=== PATIENT | female | born 1950 | race Caucasian/White ===

== ENCOUNTER 2018-04-22 08:42 | Outpatient (REF) | payer MEDICARE, BC, SELFPAY ==
[2018-04-22 19:29] LABS: Cholesterol 206 mg/dL (50-200); Glucose 92 mg/dL (70-100); HDL Cholesterol 55 mg/dL (40-60); LDL CHOLESTEROL 105 mg/dL (<100); Triglyceride 285 mg/dL (30-150)
== END 2018-04-22 09:02 ==
LOC: NCHCN 08:42
PROVIDERS: PCP Family Medicine; Visit Provider Nurse Practitioner Family
DX: E78.1 Pure hyperglyceridemia (principal)
CPT/HCPCS: 80061; 82947; 83721

== ENCOUNTER 2019-02-13 01:23 | Outpatient (CLI) | payer MEDICARE, BC, SELFPAY ==
--- NOTE | 2019-02-13 10:40 | DI.MAMMO_ITS ---
EXAM: MAMMO SCREENING CLINICAL HISTORY: SCREENING, Z12.39. TECHNIQUE: Full field digital CC and MLO mammographic images were obtained with 3D tomosynthesis and utilizing computer aided detection (CAD). COMPARISON: [id number] FINDINGS: Breast Density - Category B - Scattered areas of fibroglandular density. Masses/Architectural Distortion: None seen. Microcalcifications: No suspicious pleomorphic-type calcifications are seen. Skin Thickening/Nipple Retraction: None. Axilla: Unremarkable. IMPRESSION: 1. BI-RADS category 1, negative. No significant interval change with no specific features of maligna ncy noted. 2. Unless there is more urgent need, screening mammography is recommended, as per [employer] guidelines. A negative radiographic report should not delay biopsy if a dominant or clinically suspicious mass is present. Up to ten percent of cancers are not identified on mammography. A negative report may reinforce clinical impression. Adenosis and dense breasts may obscure an underlying neoplasm. False positive reports average 6 to 10%. Patient will receive a letter notifying them of these results.
== END 2019-02-13 01:43 ==
PROVIDERS: PCP Nurse Practitioner; Visit Provider Nurse Practitioner
DX: Z12.31 Encounter for screening mammogram for malignant neoplasm of breast (principal)
CPT/HCPCS: 77063; 77067

== ENCOUNTER 2019-10-23 10:47 | Outpatient (REF) | payer MEDICARE, BC, SELFPAY ==
[2019-10-23 19:27] LABS: Hemoglobin A1C 5.5 % (<5.7)
[2019-10-25 11:53] LABS: IgA 244 mg/dL (85-499); Interpretation (See Note); Tissue Transglutaminase IgA 2.3 U/mL (<4.0)
== END 2019-10-23 11:07 ==
LOC: NCHCN 10:47
PROVIDERS: PCP Nurse Practitioner; Visit Provider Nurse Practitioner
DX: R73.09 Other abnormal glucose (principal); K58.9 Irritable bowel syndrome, unspecified; E78.1 Pure hyperglyceridemia
CPT/HCPCS: 82784; 83516; 83036

== ENCOUNTER 2020-01-26 18:25 | Outpatient (REF) | payer MEDICARE, BC, SELFPAY ==
[2020-01-26 18:12] LABS: HCT 34.8 % (36.0-46.0); HGB 11.5 g/dL (11.2-15.7); MCH 31.3 pg (27.0-33.0); MCV 94.6 fL (80-95); MPV 9.9 fL (8.0-11.0); Platelet Count 306 10^3/uL (130-400); RBC 3.68 10^6/uL (3.93-5.22); RDW 13.9 % (11.7-14.6); RDW-SD 47.8 fL; WBC 7.28 10^3/uL (4.4-10.8)
[2020-01-26 18:28] LABS: Iron 46 ug/dL (50-170)
== END 2020-01-26 18:45 ==
LOC: NCHCN 18:25
PROVIDERS: PCP Nurse Practitioner; Visit Provider Physician Assistant
DX: D64.9 Anemia, unspecified (principal)
CPT/HCPCS: 85027; 83540

== ENCOUNTER 2020-03-08 18:46 | Outpatient (REF) | payer MEDICARE, BC, SELFPAY ==
[2020-03-08 18:37] LABS: HCT 36.6 % (36.0-46.0); MCH 31.4 pg (27.0-33.0); MCHC 32.8 % (32.0-36.0); MCV 95.8 fL (80-95); MPV 9.7 fL (8.0-11.0); Platelet Count 331 10^3/uL (130-400); RBC 3.82 10^6/uL (3.93-5.22); RDW 13.8 % (11.7-14.6); WBC 7.63 10^3/uL (4.4-10.8)
[2020-03-08 18:58] LABS: Iron 42 ug/dL (50-170)
== END 2020-03-08 19:06 ==
LOC: NCHCN 18:46
PROVIDERS: PCP Nurse Practitioner; Visit Provider Physician Assistant
DX: D64.9 Anemia, unspecified (principal)
CPT/HCPCS: 85027; 83540

== ENCOUNTER 2020-11-09 16:10 | Outpatient (REF) | payer MEDICARE, BC, SELFPAY ==
[2020-11-08 20:30] LABS: HCT 39.9 % (36.0-46.0); HGB 12.7 g/dL (11.2-15.7); MCH 30.6 pg (27.0-33.0); MCHC 31.8 % (32.0-36.0); MCV 96.1 fL (80-95); MPV 9.9 fL (8.0-11.0); Platelet Count 310 10^3/uL (130-400); RBC 4.15 10^6/uL (3.93-5.22); RDW 13.4 % (11.7-14.6); RDW-SD 47.1 fL; WBC 6.39 10^3/uL (4.4-10.8)
[2020-11-08 20:45] LABS: Iron 79 ug/dL (50-170); Total Iron Binding Capacity 289 ug/dL (250-450); Transferrin Sat 27 % (15-50)
[2020-11-08 20:46] LABS: Anion Gap 9.1 mmol/L (3-11); BUN 25 mg/dL (7-18); CO2 28.9 mmol/L (21.0-32.0); CREATININE 0.9 mg/dL (0.55-1.02); Calcium 9.6 mg/dL (8.5-10.1); Calculated LDL 152 mg/dL (<100); Chloride 105 mmol/L (98-107); Cholesterol 251 mg/dL (<200); Glucose 92 mg/dL (74-106); HDL Cholesterol 49 mg/dL (40-60); Lipase 77 U/L (73-393); Potassium 4.2 mmol/L (3.5-5.1); Sodium 143 mmol/L (136-145); Triglyceride 250 mg/dL (<150)
== END 2020-11-09 16:11 | disposition home or self-care (01) ==
LOC: NCHCN 16:10
PROVIDERS: PCP Nurse Practitioner; Visit Provider Physician Assistant
DX: R53.83 Other fatigue (principal); D64.9 Anemia, unspecified; E78.5 Hyperlipidemia, unspecified
CPT/HCPCS: 80048; 80061; 83690; 85027; 83540; 83550

== ENCOUNTER 2021-06-27 00:56 | Outpatient (CLI) | payer MEDICARE, BC, SELFPAY ==
--- NOTE | 2021-06-27 11:00 | DI.DEXA_ITS ---
Exam(s) XR DEXA BONE DENSITY W/WO ART EXAM: XR DEXA BONE DENSITY W/WO ART CLINICAL HISTORY: MENOPAUSE, Z78.0 TECHNIQUE: COMPARISON: Comparison examination is 11/05/2008. FINDINGS: Lateral Spine Image: Unremarkable. No compression deformities identified. Left hip: Total T-Score: 0.5. This compares to 0.7 on the prior examination which is a decrease of 1.9 percent in the bone mineral density. Total Z-Score: 2.2 T- and Z-scores: Within normal limits. Lumbar Spine: Total T-Score: 1.3. This compares to 1.2 on the prior examination which is an increase of 0.9 percent in the bone mineral density. Total Z-Score: 3.6 T- and Z-scores: Within normal limits. IMPRESSION: No evidence of osteoporosis.
--- NOTE | 2021-06-27 11:28 | DI.MAMMO_ITS ---
Exam(s) MAMMO SCREENING EXAM: MAMMO SCREENING CLINICAL HISTORY: SCREENING, Z12.39 TECHNIQUE: Bilateral full field digital CC and MLO mammographic images were obtained with 3D tomosyn thesis and utilizing computer aided detection (CAD). COMPARISON: Available for comparison. FINDINGS: Masses/Architectural Distortion: None seen. Microcalcifications: No suspicious pleomorphic-type are seen. Skin Thickening/Nipple Retraction: None. IMPRESSION: 1. No significant interval change with no specific features of malignancy noted. 2. Unless there is more urgent need, screening mammography is recommended, as per [employer] guidelines. BI-RADS Category 1 - Negative Breast Density - Category B - Scattered areas of fibroglandular density Breast density category C or D implies that the patient has dense breast tissue. Dense breast tissue is very common and is not abnormal but dense breast tissue can make it harder to find cancer on a ma mmogram. Also, dense breast tissue may increase their breast cancer risk. This information about the result of the mammogram report was provided to the patient to raise their awareness. Use this report when you speak with the patient about their risks for breast cancer, which includes their family hist ory. At that time, you may recommend for more screening tests (Ultrasound or MRI) as they might be us eful based on their risk. A negative radiographic report should not delay biopsy if a dominant or clinically suspicious mass is present. Up to ten percent of cancers are not identified on mammography. A negative report may reinforce clinical impression. Adenosis and dense breasts may obscure an underlying neoplasm. False positive reports average 6 to 10%. Patient will receive a letter notifying them of these results.
== END 2021-06-27 01:16 ==
PROVIDERS: PCP Nurse Practitioner; Visit Provider Physician Assistant
DX: Z12.31 Encounter for screening mammogram for malignant neoplasm of breast (principal); M85.88 Other specified disorders of bone density and structure, other site; Z78.0 Asymptomatic menopausal state
CPT/HCPCS: 77063; 77067; 77080

== ENCOUNTER → 2021-07-25 13:52 | Outpatient (BNVA) | payer MEDICARE, BC, SELFPAY | PROVIDERS: PCP Physician Assistant; Referring Provider Physician Assistant; Visit Provider Physical Therapy Assistant | DX: Z80.0 Family history of malignant neoplasm of digestive organs (principal); Z12.11 Encounter for screening for malignant neoplasm of colon ==

== ENCOUNTER 2021-08-04 10:26 | Day surgery (SDC) | payer MEDICARE, BC, SELFPAY ==
--- NOTE | 2021-08-04 07:00 | COLE_ITS ---
Colonoscopy Report Date of procedure: 08/04/21 Pre-op diagnosis general: Colon Cancer screening and Family Hx of colon cancer Post-op diagnosis procedure note: same Procedure: Colonoscopy Surgeon: Phylicia Dimas Anesthesia Type: General:No Airway Estimated blood loss (mL): 0 Pathology: none sent Complications: None Disposition: same day Indications: The patient is here for Colonoscopy pre-op.?Her last screening was in 2015, which was unremarkable. She has a family history of colon cancer in her father at the age of 67, Brother at the age of 68 and Sister in her 70s.??She has not had any bowel habit changes. -Discussed colonoscopy bowel prep as well as the procedure. Discussed possible complications of the procedure to include bleeding, pain, perforation, missed small lesion/polyp, sore throat, aspiration and adverse reaction to the medic ations. Questions were answered to patient?s satisfaction. No guarantees were implied or given.? Prep: Miralax/Dulcolax Procedure Start Time: 13:02 Procedure End Time: 13:24 Retraction Time: 8 minutes Findings: Normal colon Procedure Description: After informed consent was obtained the patient was taken to the procedure room and placed in a left decubitous position. Monitors were applied and a time out was done. The patients name, date of , procedure, allergies to medications and metal in their body was reviewed. The patient was then sedated. Once sedated and comfortable a rectal exam was done. External exam was normal. Internal exam revealed a normal sphincter tone and no palpable masses. The scope was then introduced and retro-flexed. No internal hemorrhoids, polyps or masses were identified on retro-flexion. The scope was then advanced to the cecum with some difficulty. The ileocecal vlave and appendiceal orifice were identified. The prep was good. The scope was then slowly retracted over 8 minutes back into the rectum. There were no polyps and no diverticulosis noted. The scope was removed and the patient was woken up and taken back to Same day surgery in stable condition. The patient tolerated the procedure well and there were no immediate complications. Follow up: The patient should follow up in 5 years unless they develop changes in bowel habits or other new gastrointestinal complaints.
--- NOTE | 2021-08-04 07:01 | W.PM.DSUDISC ---
Discharge Plan Disposition Patient Disposition: HOME Condition: Good Discharge Details Reason For Visit: Colon cancer screening Attending Provider: Phylicia Dimas Primary Care Provider: Korey Alonso Home Meds and New Rx's Prescriptions: Continued blue-green algae (Spirulina) 500 MG tablet 1,000 mg PO DAILY omega-3 fatty acids-fish oil [Fish Oil] 1 EACH capsule 2 ea PO DAILY magnesium amino acid chelate 100 MG tablet 400 mg PO DAILY vitamin B complex 1 EACH capsule 1 ea PO DAILY CBD 20 mg PO HS duloxetine 30 mg capsule,delayed release(DR/EC) 30 mg PO DAILY acetaminophen [Tylenol 8 Hour] 650 mg tablet extended release 1,300 mg PO Q12H clonidine HCl 0.1 mg tablet 0.1 mg PO QHS omeprazole 40 mg capsule,delayed release(DR/EC) 40 mg PO DAILY calcium carbonate 600 mg calcium (1,500 mg) tablet 600 mg PO DAILY cholecalciferol (vitamin D3) [Vitamin D3] 25 mcg (1,000 unit) capsule 4,000 unit PO DAILY pregabalin 50 mg capsule 50 mg PO BID Discontinued bisacodyl [Dulcolax (bisacodyl)] 5 mg tablet,delayed release (DR/EC) 5 mg PO ONCE Qty: 4 0RF Rx Instructions: Colonoscopy Bowel Prep- Per Instructions polyethylene glycol 3350 17 gram/dose powder 238 g PO ONCE Qty: 238 0RF Rx Instructions: Colonoscopy Bowel Prep- Per Instructions Discharge Instructions Additional Instructions: Findings: Normal Follow up: 5 years Please call if you develop: fevers >101.5 Nausea or Vomiting Abdominal pain that is not transient Rectal bleeding that is more then a tbsp A hard abdomen and inability to pass gas DAY SURGERY UNIT POST ENDOSCOPY INSTRUCTIONS Instructions for everyone who is given Anesthesia: For your safety, please do the following for the next 24 Hours: a. Do not drive or operate dangerous equipment b. Do not drink alcohol beverages or use any recreational drugs for the first 24 hours or while taking pain medications. The medications in your body may have a reaction that can be dangerous. c. Do not make any important decisions or sign any important papers 1. Generally there are no restrictions on your activity after a day or so has gone by, but you may feel a bit fatigued for a few days. 2. After you arrive home you may have a light meal and return to a normal diet as you can tolerate it without feeling sick to your stomach. 3. After surgery, you may feel pain or discomfort. This should be only transient, but if it persists please contact your doctor. 4. If there are any questions regarding the findings of your procedure, please feel free to contact your doctor. 6. If you are unable to contact your doctor with a problem, contact the hospital at [phone]. 7. Continue all your regular medications unless directed otherwise. I understand the above instructions and have no questions. Signature of Patient or Responsible Adult Escort Date/Time Name of Responsible Adult Escort Signature of Nurse Date/Time Activity:: Activity as Tolerated Diet:: As Tolerated Discharge Orders Discharge Orders: Discharge Order (Routine); Ordered 08/04/21 Ordered By: Phylicia Dimas
[2021-08-04 10:43] VITALS: BP 120/76; PULSE 68; RESP 16; TEMP 36.3; O2SAT 99
[2021-08-04] MEDS: Lactated Ringers 1,000 ML 80 ML IV (11:15)
--- NOTE | 2021-08-04 11:48 | W.ANESPRE ---
General Info Date of Service Date Performed: 08/04/21 Height: 4 ft 11 in Weight: 59.7 kg Body Mass Index (BMI): 26.6 Surgical Procedure: Operation Date: 08/04/21 12:05 Proposed Procedure Side Surgeon p Colonoscopy Phylicia Dimas MD Meds Allergies and Home Medications Allergies Allergy/AdvReac Type Severity Reaction Status Date / Time No Known Allergies Allergy Unverified 08/01/21 11:21 Home Medication Medication Instructions Recorded blue-green algae (Spirulina) 500 1,000 mg PO DAILY 11/22/15 mg tablet magnesium amino acid chelate 100 400 mg PO DAILY 11/22/15 mg tablet omega-3 fatty acids-fish oil 300 2 ea PO DAILY 11/22/15 mg-1,000 mg capsule (Fish Oil) vitamin B complex 1 ea PO DAILY 08/23/17 Cbd 20 mg PO HS 08/25/17 acetaminophen 650 mg 1,300 mg PO Q12H 01/17/21 tablet,extended release (Tylenol 8 Hour) calcium carbonate 600 mg calcium 600 mg PO DAILY 01/17/21 (1,500 mg) tablet clonidine HCl 0.1 mg tablet 0.1 mg PO QHS 01/17/21 duloxetine 30 mg capsule,delayed 30 mg PO DAILY 01/17/21 release omeprazole 40 mg capsule,delayed 40 mg PO DAILY 01/17/21 release bisacodyl 5 mg tablet,delayed 5 mg PO ONCE Colonoscopy Bowel 07/25/21 release (Dulcolax (bisacodyl)) Prep #4 tabs cholecalciferol (vitamin D3) 25 4,000 unit PO DAILY 07/25/21 mcg (1,000 unit) capsule (Vitamin D3) polyethylene glycol 3350 17 238 g PO ONCE Colonoscopy Bowel 07/25/21 gram/dose oral powder Prep #238 grams pregabalin 50 mg capsule 50 mg PO BID 07/25/21 Current Visit Medications: Current Medications Generic Name Dose Route Start Last Admin Trade Name Freq PRN Reason Stop Dose Admin Hyoscyamine Sulfate 0.125 mg 08/04/21 07:02 Hyoscyamine 0.125 Mg Sl/Oral/Chew SL DIRECTED PRN Ringer's Solution 1,000 mls @ 80 mls/hr 08/04/21 06:00 08/04/21 11:15 IV 08/31/21 23:59 80 mls/hr INFUSION JÚNIOR Administration IV Miscellaneous Supplies 1 each 08/04/21 06:00 Iv Access IV 08/31/21 23:59 DIRECTED JÚNIOR Ondansetron HCl 4 mg 08/04/21 07:02 Ondansetron 4 Mg/2 Ml Vial IVP Q4H PRN PRN Nausea / Vomiting Sodium Chloride 0 ml 08/04/21 06:00 Normal Saline Flush 10 Ml Syr IV 08/31/21 23:59 PRN PRN Sodium Chloride 0 ml 08/04/21 06:00 Normal Saline 10 Ml Vial IJ 08/31/21 23:59 DIRECTED PRN Sterile Water 0 ml 08/04/21 06:00 Water,Injection,Sterile 10 Ml Vial IJ 08/31/21 23:59 DIRECTED PRN PFSH Active Problems Active Problems: Problem Status Onset Code Hx of colonic polyps Sensorineural hearing loss of both ears H90.3 Bilateral hearing loss H91.93 Obstructive sleep apnea G47.33 IBS (irritable bowel syndrome) K58.9 Screening for colon cancer Z12.11 Medical History Medical History Anemia pt. states this is no longer an issues Arthritis Chronic diarrhea Pt. states this is no longer an issues Depression Elevated hemoglobin A1c Fatigue Fibromyalgia GERD (gastroesophageal reflux disease) High triglycerides Hot flashes Hyperlipidemia Memory impairment Muscle pain Neoplasm of unspecified behavior of bone, soft tissue, and skin Pulsatile tinnitus of left ear Retinal detachment, right Sleep disorder Surgical menopause Vitamin D deficiency Pt. denies this Surgical History Surgical History (Updated 08/04/21 @ 10:54 by Mary Patel RN) Colonoscopy - [facility] (12/04/15) History of cataract surgery Bilat History of hysterectomy Tobacco Smoking/Tobacco Use Status: Never Alcohol Alcohol Intake: never Substance Use Substance use: Never Substance use type: does not use Vital Signs and Lab Results Vital Signs Most Recent Vital Signs in EMR: Most Recent Vital Signs Temp Pulse Resp BP Pulse Ox 36.3 C L 68 16 120/76 99 08/04/21 10:43 08/04/21 10:43 08/04/21 10:43 08/04/21 10:43 08/04/21 10:43 Lab Results Blood Type / Crossmatch: No Data to Display Complete Blood Count: No Data to Display Complete Metabolic Panel: No Data to Display Liver Function Panel: No Data to Display Coagulation Panel: No Data to Display Cardiac Panel: No Data to Display Arterial Blood Gas: No Data to Display Venous Blood Gas: No Data to Display Pancreas Panel: No Data to Display Thyroid Panel: No Data to Display Infectious Disease: No Data to Display Blood Cultures: No Data to Display Toxicology Panel: No Data to Display Anesthesia Assessment and Plan Anesthesia History Personal History: No History of Anesthesia Complications Family History: No Family History of Anesthesia Complications Exercise Tolerance Exercise Tolerance: Metabolic Equivalents>4 Pertinent Negatives Pertinent Negatives: No Symptoms of GERD, No Major Cardiovascular Symptoms or Complaints, No Major Pulmonary Symptoms or Complaints and No History of CVA/TIA Cardiac & Pulmonary Exam Cardiac Exam: Normal S1/S2 Heart Sounds Pulmonary Exam: Clear Bilateral Breath Sounds Implantable Cardiac Device Does patient have a Pacemaker or an ICD?: No Airway Exam Known Difficult Airway: No Mallampati Class: 2 Mouth Opening: Normal (> 3cm) Thyromental Distance: Greater than 3 cm Neck Range of Motion: Full ROM Neck Circumference: Normal Teeth Condition: Normal Dentition ASA Classification ASA Score: ASA 2 Emergency Case?: No NPO Status NPO Status: NPO Clears >2 hours, Solids >8 hours Anesthesia Plan Resuscitation Status: Full Code Anesthesia Technique: General Anesthesia Airway Planned: Natural Airway Monitors Used: Standard Monitors
[2021-08-04 12:14] VITALS: BMI 26.6
[2021-08-04 13:33] VITALS: BP 119/66; PULSE 62; RESP 16; TEMP 36.1; O2SAT 95
[2021-08-04 14:04] VITALS: BP 114/71; PULSE 66; RESP 16; TEMP 36; O2SAT 99
--- NOTE | 2021-08-04 14:04 | W.ANESPOSTOP ---
Postoperative Evaluation Date, Time and Location Date Performed: 08/04/21 Time Performed: 13:33 Patient Location: Day Surgery Unit Vital Signs Most Recent Imported Vital Signs: Most Recent Vital Signs Temp Pulse Resp BP Pulse Ox 36.1 C L 62 16 119/66 95 08/04/21 13:33 08/04/21 13:33 08/04/21 13:33 08/04/21 13:33 08/04/21 13:33 Pain Score Most Recent Pain Score: Most Recent Pain Score Pain Level 0 08/04/21 13:33 Assessment Mental Status: Awake (Alert & Oriented to Patient Baseline) Airway and Respiratory Function: Patent airway with normal (patient baseline) respiratory exam Cardiovascular Function: Hemodynamically Stable Hydration Status: Adequately Hydrated Nausea & Vomiting: No Nausea or Vomiting Pain: Pt. Denies Any Pain Peripheral Nerve Block: Patient did not receive a nerve block
== END 2021-08-04 14:34 | disposition home or self-care (01) ==
PROVIDERS: PCP Physician Assistant; Visit Provider Surgery
PROC: 0DJD8ZZ Inspection of Lower Intestinal Tract, Via Natural or Artificial Opening Endoscopic (ICD-10-PCS; CPT 45378; principal; 2021-08-04 12:00)
DX: Z12.11 Encounter for screening for malignant neoplasm of colon (principal); K21.9 Gastro-esophageal reflux disease without esophagitis; E78.5 Hyperlipidemia, unspecified; K58.9 Irritable bowel syndrome, unspecified; Z80.0 Family history of malignant neoplasm of digestive organs
CPT/HCPCS: G0105

== ENCOUNTER 2022-07-01 10:50 | Outpatient (REF) | payer MEDICARE, BC, SELFPAY ==
[2022-07-01 15:47] LABS: HCT 40.2 % (36.0-46.0); HGB 13.4 g/dL (11.2-15.7); MCH 30.9 pg (27.0-33.0); MCHC 33.3 % (32.0-36.0); MCV 93 fL (80-95); Platelet Count 301 10^3/uL (130-400); RBC 4.33 10^6/uL (3.93-5.22); RDW 13.2 % (11.7-14.6); RDW-SD 45.2 fL; WBC 6.56 10^3/uL (4.4-10.8)
[2022-07-01 16:16] LABS: ALT 56 U/L (14-59); AST 37 U/L (15-37); Albumin 3.6 g/dL (3.4-5.0); Alkaline Phosphatase 73 U/L (46-116); Anion Gap 7.6 mmol/L (3-11); BUN 15 mg/dL (7-18); Bilirubin, Total 0.3 mg/dL (0.2-1.0); CO2 26.4 mmol/L (21.0-32.0); CREATININE 0.9 mg/dL (0.55-1.02); Calcium 9.2 mg/dL (8.5-10.1); Calculated LDL 115 mg/dL (<100); Chloride 106 mmol/L (98-107); Cholesterol 223 mg/dL (<200); Glucose 94 mg/dL (74-106); HDL Cholesterol 59 mg/dL (40-60); Potassium 4.1 mmol/L (3.5-5.1); Sodium 140 mmol/L (136-145); Total Protein 7.4 g/dL (6.4-8.2); Triglyceride 247 mg/dL (<150)
== END 2022-07-01 10:51 | disposition home or self-care (01) ==
LOC: NCHCN 10:50
PROVIDERS: PCP Physician Assistant; Visit Provider Physician Assistant
DX: E78.5 Hyperlipidemia, unspecified (principal); K21.9 Gastro-esophageal reflux disease without esophagitis; M79.7 Fibromyalgia
CPT/HCPCS: 80053; 80061; 85027

== ENCOUNTER 2022-08-17 01:11 | Outpatient (CLI) | payer MEDICARE, BC, SELFPAY ==
--- NOTE | 2022-08-17 | DI.MAMMO_ITS ---
Exam(s) MAMMO SCREENING EXAM: MAMMO SCREENING CLINICAL HISTORY: SCREENING FOR BREAST CANCER Z12.39. TECHNIQUE: Bilateral full field digital CC and MLO mammographic images were obtained with 3D tomosyn thesis and utilizing computer aided detection (CAD). COMPARISON: Prior mammograms were reviewed. FINDINGS: There has been no significant change in the appearance and distribution of the fibroglandular tissue. There are no new spiculated masses nor malignant appearing microcalcification groups. There is no significant architectural distortion nor skin thickening-retraction. IMPRESSION: No radiographic evidence of malignancy. BI-RADS Category 1 - Negative Breast Density - Category B - Scattered areas of fibroglandular density Breast density Category C or D implies that the patient has dense breast tissue. Dense breast tissue can make it harder to find cancer on a mammogram. Dense breast tissue is also associated with an incr eased risk of breast cancer. This information about the result of the mammogram report was provided to the patient to raise their awareness. Use this report when you speak with the patient about their risks for breast cancer, which includes their family history. At that time, you may recommend additional screening tests (Ultrasoun d or MRI) as these tests may add significant information. A negative radiographic report should not delay biopsy if a dominant or clinically suspicious mass is present. Up to ten percent of cancers are not identified on mammography. A negative report may reinforce clinical impression. Adenosis and dense breasts may obscure an underlying neoplasm. False positive reports average 6 to 10%. Patient will receive a letter notifying them of these results.
== END 2022-08-17 01:31 ==
LOC: DI 01:12
PROVIDERS: PCP Physician Assistant; Visit Provider Physician Assistant
DX: Z12.31 Encounter for screening mammogram for malignant neoplasm of breast (principal)
CPT/HCPCS: 77063; 77067

== ENCOUNTER 2022-10-07 16:48 | Outpatient (REF) | payer MEDICARE, BC, SELFPAY ==
[2022-10-07 18:07] LABS: ALT 44 U/L (14-59); AST 27 U/L (15-37); Albumin 3.7 g/dL (3.4-5.0); Alkaline Phosphatase 76 U/L (46-116); Anion Gap 11.4 mmol/L (3-11); BUN 18 mg/dL (7-18); Bilirubin, Total 0.4 mg/dL (0.2-1.0); CO2 26.6 mmol/L (21.0-32.0); Calcium 9.3 mg/dL (8.5-10.1); Calculated LDL 64 mg/dL (<100); Chloride 105 mmol/L (98-107); Cholesterol 158 mg/dL (<200); Estimated GFR 59.49 (mL/min/1.73m2); Glucose 93 mg/dL (74-106); HDL Cholesterol 57 mg/dL (40-60); Potassium 4.1 mmol/L (3.5-5.1); Sodium 143 mmol/L (136-145); Total Protein 6.9 g/dL (6.4-8.2); Triglyceride 187 mg/dL (<150)
== END 2022-10-07 16:49 | disposition home or self-care (01) ==
LOC: NCHCN 16:48
PROVIDERS: PCP Physician Assistant; Visit Provider Physician Assistant
DX: E78.5 Hyperlipidemia, unspecified (principal)
CPT/HCPCS: 80053; 80061

== ENCOUNTER 2023-07-26 09:45 | Outpatient (REF) | payer MEDICARE, BC, SELFPAY ==
[2023-07-26 15:25] LABS: HCT 41.7 % (36.0-46.0); HGB 13.8 g/dL (11.2-15.7); MCH 30.1 pg (27.0-33.0); MCHC 33.1 % (32.0-36.0); MCV 91 fL (80-95); MPV 9.7 fL (8.0-11.0); Platelet Count 309 10^3/uL (130-400); RBC 4.59 10^6/uL (3.93-5.22); RDW 13.2 % (11.7-14.6); RDW-SD 43.5 fL; WBC 7.52 10^3/uL (4.4-10.8)
[2023-07-26 16:06] LABS: ALT 31 U/L (14-59); AST 19 U/L (15-37); Albumin 3.8 g/dL (3.4-5.0); Alkaline Phosphatase 74 U/L (46-116); Anion Gap 11.6 mmol/L (3-11); BUN 18 mg/dL (7-18); Bilirubin, Total 0.3 mg/dL (0.2-1.0); CO2 25.4 mmol/L (21.0-32.0); CREATININE 0.8 mg/dL (0.55-1.02); Calcium 9.7 mg/dL (8.5-10.1); Calculated LDL 119 mg/dL (<100); Chloride 104 mmol/L (98-107); Cholesterol 227 mg/dL (<200); Estimated GFR 77.27 (mL/min/1.73m2); Glucose 84 mg/dL (74-106); HDL Cholesterol 56 mg/dL (40-60); Potassium 4.3 mmol/L (3.5-5.1); Sodium 141 mmol/L (136-145); Total Protein 7.2 g/dL (6.4-8.2); Triglyceride 262 mg/dL (<150)
== END 2023-07-26 09:46 | disposition home or self-care (01) ==
LOC: NCHCN 09:45
PROVIDERS: PCP Physician Assistant; Visit Provider Physician Assistant
DX: E78.5 Hyperlipidemia, unspecified (principal); K21.9 Gastro-esophageal reflux disease without esophagitis
CPT/HCPCS: 80053; 80061; 85027

== ENCOUNTER → 2023-08-30 00:38 | Outpatient (CLI) | payer MEDICARE, BC, SELFPAY ==
--- NOTE | 2023-08-30 | DI.MAMMO_ITS ---
Exam(s) MAMMO SCREENING EXAM: MAMMO SCREENING CLINICAL HISTORY: SCREENING,Z12.31 TECHNIQUE: Bilateral full field digital CC and MLO mammographic images were obtained with 3D tomosyn thesis and utilizing computer aided detection (CAD). COMPARISON: Available for comparison. FINDINGS: Masses/Architectural Distortion: None seen. Microcalcifications: No suspicious pleomorphic-type are seen. Skin Thickening/Nipple Retraction: None. IMPRESSION: 1. No significant interval change with no specific features of malignancy noted. 2. Unless there is more urgent need, screening mammography is recommended, as per [employer] guidelines. BI-RADS Category 1 - Negative Breast Density - Category B - Scattered areas of fibroglandular density Breast density category C or D implies that the patient has dense breast tissue. Dense breast tissue is very common and is not abnormal but dense breast tissue can make it harder to find cancer on a ma mmogram. Also, dense breast tissue may increase their breast cancer risk. This information about the result of the mammogram report was provided to the patient to raise their awareness. Use this report when you speak with the patient about their risks for breast cancer, which includes their family hist ory. At that time, you may recommend for more screening tests (Ultrasound or MRI) as they might be us eful based on their risk. A negative radiographic report should not delay biopsy if a dominant or clinically suspicious mass is present. Up to ten percent of cancers are not identified on mammography. A negative report may reinforce clinical impression. Adenosis and dense breasts may obscure an underlying neoplasm. False positive reports average 6 to 10%. Patient will receive a letter notifying them of these results.
== END ==
PROVIDERS: PCP Physician Assistant; Visit Provider Physician Assistant
DX: Z12.31 Encounter for screening mammogram for malignant neoplasm of breast (principal)
CPT/HCPCS: 77063; 77067

== ENCOUNTER 2024-01-13 16:36 | Outpatient (REF) | payer MEDICARE, BC, SELFPAY ==
[2024-01-13 20:01] LABS: FREE T4 0.85 ng/dL (0.76-1.46); TSH 1.14 uIU/mL (0.36-3.74)
== END 2024-01-13 16:37 | disposition home or self-care (01) ==
LOC: NCHCN 16:36
PROVIDERS: PCP Physician Assistant; Visit Provider Physician Assistant
DX: R53.83 Other fatigue (principal)
CPT/HCPCS: 84439; 84443

== ENCOUNTER 2024-11-22 10:09 | Outpatient (REF) | payer MEDICARE, BC, SELFPAY ==
[2024-11-22 17:13] LABS: ALT 33 U/L (14-59); AST 13 U/L (15-37); Albumin 3.6 g/dL (3.4-5.0); Alkaline Phosphatase 69 U/L (46-116); Anion Gap 12.2 mmol/L (3-11); BUN 17 mg/dL (7-18); Bilirubin, Total 0.4 mg/dL (0.2-1.0); CO2 24.8 mmol/L (21.0-32.0); Calcium 9.0 mg/dL (8.5-10.1); Calculated LDL 59 mg/dL (<100); Chloride 107 mmol/L (98-107); Cholesterol 149 mg/dL (<200); Estimated GFR 66.67 (mL/min/1.73m2); Glucose 87 mg/dL (74-106); HDL Cholesterol 62 mg/dL (>or=50); Potassium 4.2 mmol/L (3.5-5.1); Sodium 144 mmol/L (136-145); Total Protein 6.6 g/dL (6.4-8.2); Triglyceride 144 mg/dL (<150)
== END 2024-11-22 10:10 | disposition home or self-care (01) ==
LOC: NCHCN 10:09
PROVIDERS: PCP Physician Assistant; Visit Provider Physician Assistant
DX: E78.5 Hyperlipidemia, unspecified (principal)
CPT/HCPCS: 80053; 80061